=== PATIENT | male | born 1955 | race Caucasian/White ===

== ENCOUNTER 2022-01-11 11:38 | Emergency (ER) | payer OTHER, SELFPAY ==
[2022-01-11] VITALS (22 sets, daily range): BP systolic 113–127; BP diastolic 63–82; PULSE 82–92; RESP 12–22; TEMP 36.1–36.3; O2SAT 94–100
--- NOTE | ~2022-01-11 | CT_ITS ---
EXAMINATION: CT diagnostic chest wo con DATE: 01/11/2022 12:29 INDICATION: Left lateral chest pain following fall, blunt trauma. TECHNIQUE: Computed tomography (CT) of the chest was performed without intravenous contrast. Automate d exposure control and iterative reconstruction technique were employed. Exam dose: 274.34 mGy-cm to duc exam DLP. COMPARISON: None FINDINGS: Normal heart size. Prominent coronary artery calcifications. No pericardial or pleural effu norbert. No thoracic aortic aneurysm. There is aortic arch and great vessel calcification. No hilar or mediastinal mass lesion or lymphadenopathy is evident. Minimal focal infiltrate, atelectasis or scarring in the posterolateral right upper lobe (series 4 im ages 53-55). No pulmonary infiltrate or consolidation or pulmonary mass lesion is noted otherwise. Degenerative change of the lower cervical and thoracic spine. Splenomegaly. Included portions of the adrenal glands are normal. No recent fracture is detected. IMPRESSION: Minimal focal infiltrate, atelectasis or scarring in the posterolateral right upper lobe Splenomegaly Reviewed, dictated and finalized at [facility]. Reviewed, dictated and finalized at location [facility]. IMPRESSION: Minimal focal infiltrate, atelectasis or scarring in the posterolat eral right upper lobe Splenomegaly
--- NOTE | ~2022-01-11 | CT_ITS ---
EXAMINATION: CT cervical spine wo con DATE: 01/11/2022 12:28 INDICATION: Fall. Neck injury. TECHNIQUE: Computed tomography (CT) of the cervical spine was performed without intravenous contrast. Automated exposure control and iterative reconstruction technique were employed. Exam dose: 263.59 mGy-cm total exam DLP. COMPARISON: None FINDINGS: C1 and C2 are normally aligned and the odontoid process is intact. Moderate degenerative disc disease and 1.4 mm anterolisthesis at C2-3. Moderately severe degenerative disc disease and 1.8 mm retrolisthesis at C3-4. Moderate degenerative disc disease and prominent posterior spurring at C4-5. Severe degenerative disc disease and prominent posterior spurring at C5-6 and C6-7. 2.1 mm anterolisthesis at C7-T1. There is prominent degenerative change at the apophyseal and uncovertebral joint joints throughout th e cervical spine.. IMPRESSION: Prominent cervical spondylosis; no fracture or dislocation or locked facet Reviewed, dictated and finalized at [facility]. Reviewed, dictated and finalized at [facility]. IMPRESSION: Prominent cervical spondylosis; no fracture or dislocation or lock ed facet
--- NOTE | ~2022-01-11 | CT_ITS ---
EXAMINATION: CT pelvis wo con DATE: 01/11/2022 12:28 INDICATION: Right thigh pain post fall TECHNIQUE: High resolution computed tomography (CT) of the pelvis was performed without intravenous c ontrast. Additional sagittal and coronal reconstructions were performed. Automated exposure control a nd iterative reconstruction technique were employed. The dose-length product was 254.63 mGy-cm. COMPARISON: None FINDINGS: Bone alignment is normal. No fracture. Chondrocalcinosis and mild osteoarthritis at the bilateral hip s. Mild bilateral sacroiliac osteoarthritis. Mild lower lumbar spondylosis. Couple small sclerotic li eunice either bone island or enchondromas at the anterior left ilium. Visualized portion of the bowels are unremarkable. Postoperative change of prior left inguinal hernia repair. Bladder is normal. Prost atomegaly measuring 5.0 x 3.5 cm. 3.4 x 2.9 x 1.1 cm intramuscular lipoma along the right piriformis muscle. There is asymmetric atrophy of the left piriformis muscle belly which is of indeterminate lester ology. Mild enthesopathic calcification at the bilateral ischial tuberosity origins of the hamstring tendons. No joint effusions, free fluid in the pelvis or other abnormal fluid collections in the pelv is and proximal thighs. IMPRESSION: 1. Mild degenerative skeletal changes. No acute osseous abnormality. Reviewed, dictated and finalized at location [facility].
--- NOTE | ~2022-01-11 | XR_ITS ---
EXAMINATION: XR forearm LT 2V, XR hand LT min 3V DATE: 01/11/2022 12:45 INDICATION: Crush injury to the left hand and forearm with laceration to the fourth and fifth digit. TECHNIQUE: 1. AP an lateral views of the left forearm were obtained. 2. Dorsal palmar, oblique and lateral views of the left hand were obtained. COMPARISON: none FINDINGS: Diffuse osteopenia. Alignment is normal from the left elbow through the hand. No fracture. Joint spac es are normal at the left elbow with no joint effusion. Polyarticular osteoarthritis, moderate at the third proximal interphalangeal and second metacarpophalangeal joints and mild at the distal radiouln ar, first carpometacarpal, first metacarpophalangeal and multiple additional interphalangeal joints. There is subarticular cystic change with suggestion of small region of collapsed the articular surfac e at the head of the second metacarpal. There is also a small amount of dystrophic calcification late ral to the head of the second metacarpal likely along the radial collateral ligament. No radiopaque f oreign bodies identified. IMPRESSION: 1. Mild to moderate polyarticular osteoarthritis at the left hand and wrist. No acute osseous abnorma lity or radiopaque foreign bodies. Reviewed, dictated and finalized at location [facility]. IMPRESSION: 1. Mild to moderate polyarticular osteoarthritis at the left hand and wrist. No acute osseous abnormality or radiopaque foreign bodies.
--- NOTE | ~2022-01-11 | XR_ITS ---
EXAMINATION: XR femur RT min 2V DATE: 01/11/2022 12:45 INDICATION: Right femur pain. Injury. TECHNIQUE: 2 views of right femur on 4 radiographs were obtained. COMPARISON: None. FINDINGS: Bone alignment is normal. No fracture. There is mild right hip osteoarthritis. There is mil d tricompartmental osteoarthritis of the knee. No knee joint effusion. IMPRESSION: 1. Mild polyarticular osteoarthritis. Reviewed, dictated and finalized at location [facility].
--- NOTE | ~2022-01-11 | CT_ITS ---
EXAMINATION: CT brain wo con DATE: 01/11/2022 12:29 INDICATION: Fall. TECHNIQUE: Computed tomography (CT) of the head was performed without intravenous contrast. The mA wa s adjusted according to patient size. Iterative reconstruction technique was employed. Exam dose: 60 5.33 mGy-cm total exam DLP. COMPARISON: None FINDINGS: Vertebral and bilateral carotid siphon internal carotid artery calcifications. No intracranial mass lesion or hemorrhage or cerebrovascular accident. No midline shift or mass effec t effect. No subdural or epidural hematoma is detected. The mastoid air cells and included paranasal sinuses are normally developed and aerated. No fracture or bone destruction of the cranial vault. IMPRESSION: Cerebral atherosclerosis No acute intracranial abnormality or skull fracture Reviewed, dictated and finalized at [facility]. Reviewed, dictated and finalized at location A.
--- NOTE | 2022-01-11 12:00 | ECG_ITS ---
Measurements Intervals [place] Rate: 84 P: 59 IA: 164 QRS: -27 QRSD: 93 T: 42 QT: 356 QTc: 423 Interpretive Statements SINUS RHYTHM NORMAL ECG Electronically Signed On 01-11-2022 13:03:39 CDT by Radames Arevalo D.O.
--- NOTE | 2022-01-11 12:06 | PC.NURSE ---
Pt off floor to radiology.
--- NOTE | 2022-01-11 12:51 | PC.NURSE ---
Pt reports minimal discomfort, 2/10 at this time. Pt would prefer to hold off on IV and IV morphine at this time. aware.
[2022-01-11 12:58] LABS: Basophils Absolute Auto 0.04 K/mm3 (0.00-0.10); Basophils Percent Auto 0.5 % (0.0-1.0); Eosinophils Absolute Auto 0.12 K/mm3 (0.02-0.50); Eosinophils Percent Auto 1.6 % (1.0-6.0); Hematocrit 44.3 % (37.0-46.0); Hemoglobin 14.8 g/dL (12.4-15.3); Immature Granulocyte Absolute 0.03 K/mm3 (0.00-0.00); Immature Granulocyte Percent A 0.4 % (0.0-0.0); Lymphocytes Absolute Auto 3.78 K/mm3 (1.10-4.50); Lymphocytes Percent Auto 48.9 % (18.0-42.0); Mean Corpuscular HGB Conc 33.4 g/dL (32.0-36.0); Mean Corpuscular Hemoglobin 31.9 pg (27.0-31.0); Mean Corpuscular Volume 95.5 fL (78.0-102.0); Mean Platelet Volume 8.1 fl (8.7-11.0); Monocytes Absolute Auto 0.44 K/mm3 (0.10-0.90); Monocytes Percent Auto 5.7 % (2.0-11.0); Neutrophils Absolute Auto 3.3 K/mm3 (1.7-7.2); Neutrophils Percent Auto 42.9 % (50.0-70.0); Platelet Count Result 131 K/mm3 (150-420); Red Blood Count 4.64 M/mm3 (4.70-6.10); Red Cell Distribution Width 13.8 % (11.6-14.4); White Blood Count 7.7 K/mm3 (4.8-10.8)
[2022-01-11 13:15] LABS: Alanine Aminotransferase 17 U/L (16-63); Albumin Level 3.7 g/dL (3.4-5.0); Alkaline Phosphatase 85 U/L (46-116); Anion Gap 7 mmol/L (8-16); Aspartate Amino Transferase 10 U/L (15-37); Bilirubin,Total 0.6 mg/dL (0.00-1.00); Blood Urea Nitrogen 23 mg/dL (7-18); Calcium 9.7 mg/dL (8.5-10.1); Carbon Dioxide 26 mmol/L (21-32); Chloride 102 mmol/L (98-108); Estimated CRCL calculation 73 ml/min; Estimated Glomerular Filt Rate > 60; Glucose 106 mg/dL (70-99); Osmolality Calculated 283 mOsm/kg (285-295); Potassium 4.6 mmol/L (3.5-5.1); Sodium 135 mmol/L (136-145); Total Protein 6.9 g/dL (6.4-8.2); Troponin I 5.2 ng/L (0.00-60.4)
[2022-01-11 13:16] LABS: Ethanol < 3 mg/dL (0-6)
[2022-01-11 13:50] LABS: Add Urine Microscopic? YES; Appearance Urine Clear (Clear); Bilirubin Urine Negative (Negative); Blood Urine Negative (Negative); Color Urine Light Yellow (Yellow); Glucose Urine UA 3+ (Negative); Ketones Urine 1+ (Negative); Leukocyte Esterase Ur Negative (Negative); Nitrate Urine Negative (Negative); Protein Urine Negative (Negative); Urobilinogen Urine 0.2 mg/dL (0.2-1.0); pH Urine 5.5 (5.0-8.0)
[2022-01-11 13:58] LABS: Amphetamine Screen Urine Negative (Negative); Bacteria Urine None seen /hpf; Barbiturate Screen Urine Negative (Negative); Benzodiazepines Screen Urine Negative (Negative); Cannabinoid Screen Urine Negative (Negative); Cocaine Screen Urine Negative (Negative); Methadone Screen Urine Negative (Negative); Opiate Screen Urine Negative (Negative); Phencyclidine Screen Urine Negative (Negative); RBC Urine None seen /hpf (0-2); WBC Urine None seen /hpf (0-3)
--- NOTE | 2022-01-11 15:02 | ED.FALL ---
HPI - Fall General Chief Complaint: Fall Stated Complaint: ambulance Time Seen by Provider: 01/11/22 11:42 Source: patient, EMS and RN notes reviewed Mode of arrival: EMS Limitations: no limitations History of Present Illness complaint: fall Onset (ago): hour(s) (3) Fall from: standing Place fall occurred: home Loss of consciousness: none Prolonged down time: no Symptoms prior to fall: none Context: tripped/slipped Location of injury - extremities: Left: forearm and Right: thigh Severity: mild Severity scale (1-10): 4 Quality: dull and aching Associated symptoms (after fall): denies Related Data Allergies Allergy/AdvReac Type Severity Reaction Status Date / Time metformin AdvReac Diarrhea Verified 01/11/22 11:52 Review of Systems Review of Systems: All systems reviewed & are unremarkable except as noted in HPI and below Constitutional: Constitutional: Reports no additional constitutional complaints Eyes: Eyes: Reports no additional eye complaints ENT: Reports system reviewed and no additional complaints, except as documented Cardiovascular: Cardiovascular: Reports no additional cardiovascular complaints Respiratory: Respiratory: Reports no additional respiratory complaints Gastrointestinal: Gastrointestinal: Reports no additional gastrointestinal complaints Musculoskeletal: Musculoskeletal: Reports no additional musculoskeletal complaints Comments: left forearm and right thigh pain. Integumentary/Breasts: Skin/Breast: Reports system reviewed and no additional complaints, except as docu Neurologic: Reports system reviewed and no additional complaints, except as documented Psychiatric: Psychiatric: Reports no additional psychiatric complaints Endocrine: Endocrine: Reports no additional endocrine complaints Hematologic/Lymphatic: Hematologic/Lymphatic: Reports no additional hematologic/lymphatic complaints Allergic/Immunologic: Allergic/Immunologic: Reports no additional allergic/immunologic complaints PMFSH Past Medical History Medical History Contusion of forearm, left Muscle strain of right thigh Exam Const: General: healthy appearing and no acute distress Nutritional Appearance: well nourished Orientation/consciousness: patient oriented x3 Limitations: no limitations HENMT: Head: normal to inspection Ears: external ears normal, TM's normal bilaterally and EAC's normal General nose exam: Normal external nose present and Normal nares present Face and sinus: normal facial exam and sinuses nontender Mouth: Yes Normal oral and palatal mucosa present and Yes moist mucous membranes Teeth and gingiva: dentition normal Throat: posterior oropharynx normal Eyes: Conjunctivae: conjunctivae normal Pupils: Equal, round and reactive pupils present EOM: EOMs intact bilaterally Neck: Neck: normal visual inspection, no lymphadenopathy and no meningeal signs Chest: Chest palpation & inspection: normal inspection of the chest Resp: Effort & Inspection: normal respiratory effort Auscultation: clear to auscultation bilaterally Cardio: Rate: regular rate Rhythm: regular rhythm GI: GI Palp: Yes Soft to palpation and No Tenderness to palpation present (GI) Auscultation: normal bowel sounds : General: Yes bladder normal to palpation and Yes no CVA tenderness Back/Spine/Pelvis: Back: no CVA tenderness Skin: General skin exam: normal color Rashes: no rashes Wounds: no wounds Neuro: General: patient oriented x3, moves all extremities, no meningeal signs, no focal motor deficits and CN's II-XI intact bilaterally Cranial nerves: Yes Equal, round and reactive pupils present and Yes Nystagmus not present Speech: normal speech Gait exam (Neuro): Normal gait present Extrem: General: normal to inspection and no pedal edema Other: minimal left forearm pain and right thigh pain. no acute redness, swelling or deformity. Psych: Mental Status:
--- NOTE | 2022-01-11 15:20 | PC.NURSE ---
Pt offered arm sling, declined. Given large PEMA wrap for leg, was already dressed and declined assistance placing onto leg.
== END 2022-01-11 15:31 | disposition home or self-care (01) ==
PROVIDERS: Emergency Provider Emergency Medicine; PCP Family Medicine
DX: S50.12XA Contusion of left forearm, initial encounter (principal); S76.911A Strain of unspecified muscles, fascia and tendons at thigh level, right thigh, initial encounter; W19.XXXA Unspecified fall, initial encounter
CPT/HCPCS: 36415; 70450; 71250; 72125; 72192; 73090; 73130; 73552; 80053; 80307; 81001; 84484; 85025; 93005; 99284